=== PATIENT | male | born 1965 | race Caucasian/White ===

== ENCOUNTER 2018-12-10 20:29 | Inpatient (IN) | payer BC ==
[~2018-12-10] VITALS: Ht 180.3 cm; Wt 106.4 kg
[2018-12-10] MEDS ORDERED: SIMV40TA2 PO (20:33)
[2018-12-10] MEDS ORDERED: AMLO10TA5 PO (20:33)
[2018-12-10] MEDS ORDERED: INDO50CA11 (20:33)
[2018-12-10] MEDS ORDERED: METO1TAB7 PO (20:33)
[2018-12-10] MEDS ORDERED: LOSA100T5 PO (20:33)
[2018-12-10] MEDS ORDERED: ONDANSETRON 4MG/2ML VIAL (J2405) IV ONE (20:45)
[2018-12-10] MEDS ORDERED: MORPHINE 4 MG/ML 1ML VIAL/SYRINGE (J2270) IV ONE (20:45)
[2018-12-10] MEDS ORDERED: NS 1,000 ML IV SCH (20:45)
[2018-12-10 21:11] LABS: BASO # 0.1 10^3/uL (0.0-0.2); BASO % 0.5 % (0.0-1.0); EOS # 0.4 10^3/uL (0.0-0.50); EOS % 4.1 % (0.0-3.0); HEMATOCRIT 45.2 % (42.0-52.0); HEMOGLOBIN 15.4 g/dl (13.5-17.5); LYMPH # 1.4 10^3/uL (1.5-4.5); LYMPH % 15.3 % (24.0-44.0); MEAN CORPUSCULAR HGB CONC 34.1 g/dl (32.0-36.5); MEAN CORPUSCULAR VOLUME 85.1 fl (80.0-96.0); MONO % 10.5 % (0.0-5.0); NEUTROPHILS # 6.3 10^3/uL (1.8-7.7); NEUTROPHILS % 69.3 % (36.0-66.0); PLATELET COUNT, AUTOMATED 244 10^3/uL (150-450); RED BLOOD COUNT 5.31 10^6/uL (4.30-6.10); WHITE BLOOD COUNT 9.1 10^3/uL (4.0-10.0)
[2018-12-10 21:33] LABS: ALBUMIN 4.1 GM/DL (3.2-5.2); BILIRUBIN,DIRECT 0.2 MG/DL (0.0-0.2); BILIRUBIN,TOTAL 0.7 MG/DL (0.2-1.0); CALCIUM LEVEL 9.8 MG/DL (8.5-10.1); CREATININE FOR GFR 1.76 MG/DL (0.70-1.30); GLOMERULAR FILTRATION RATE 43.5 (>56); POTASSIUM SERUM 3.5 MEQ/L (3.5-5.1); TOTAL PROTEIN 7.9 GM/DL (6.4-8.2)
[2018-12-10] MEDS ORDERED: KETOROLAC 30 MG/ML VIAL (J1885) IV ONE (21:45)
--- NOTE | 2018-12-10 23:13 | REPVR ---
EXAM: CT Abdomen and Pelvis Without Contrast EXAM DATE/TIME: 12/10/2018 10:00 PM CLINICAL HISTORY: 53 years old, male; Abdominal pain; Generalized; Additional info: Llq pain, hematuria TECHNIQUE: Imaging protocol: Axial computed tomography images of the abdomen and pelvis without contrast. Coronal and sagittal reformatted images were created and reviewed. Radiation optimization: All CT scans at this facility use at least one of these dose optimization techniques: automated exposure control; mA and/or kV adjustment per patient size (includes targeted exams where dose is matched to clinical indication); or iterative reconstruction. COMPARISON: No relevant prior studies available. FINDINGS: ABDOMEN: Liver: There is a diffuse decrease in hepatic parenchymal density, consistent with fatty infiltration. Gallbladder and bile ducts: There are gallstones present. No CT evidence of cholecystitis demonstrated. Pancreas: Normal. No ductal dilation. Spleen: Normal. No splenomegaly. Adrenals: Normal. No mass. Kidneys and ureters: Multiple bilateral non obstructing renal calculi are demonstrated measuring up to 6 mm in the right kidney. There is a 5 mm. obstructive ureteral calculus located in the distal right ureter immediately proximal to the UV junction resulting in moderate proximal hydroureteronephrosis. There is periureteral and perinephric stranding. 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 Stomach and bowel: Normal. No obstruction. No mucosal thickening. Appendix: No evidence of appendicitis. PELVIS: Bladder: Unremarkable as visualized. Reproductive: The prostate gland demonstrates mild hyperplasia. ABDOMEN and PELVIS: Intraperitoneal space: Normal. No free air. No significant fluid collection. Bones/joints: No acute fracture. No dislocation. Soft tissues: Small umbilical hernia. Vasculature: The aorta demonstrates mild atherosclerotic calcification. Lymph nodes: Normal. No enlarged lymph nodes. IMPRESSION: 1. There is a diffuse decrease in hepatic parenchymal density, consistent with fatty infiltration. 2. There are gallstones present. No CT evidence of cholecystitis demonstrated. 3. Multiple bilateral non obstructing renal calculi are demonstrated measuring up to 6 mm in the right kidney. 4. There is a 5 mm. obstructive ureteral calculus located in the distal right ureter immediately proximal to the UV junction resulting in moderate proximal hydroureteronephrosis. There is periureteral and perinephric stranding. 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 5. Mild prostatic hyperplasia. Electronically signed by: Geovanny López On 12/10/2018 23:12:52 PM
[2018-12-10] MEDS ORDERED: INDO50CA11 PO (23:58)
[2018-12-11] VITALS (7 sets, daily range): BP systolic 108–139; BP diastolic 64–86
[2018-12-11] MEDS ORDERED: MORPHINE 4 MG/ML 1ML VIAL/SYRINGE (J2270) IV PRN (01:30)
[2018-12-11] MEDS ORDERED: ONDANSETRON 4MG/2ML VIAL (J2405) IV PRN (01:30)
[2018-12-11] MEDS: CIPROFLOXACIN 400 MG in APPROPRIATE DILUENT 1 EA IV SCH ×2 (01:45→12:38)
[2018-12-11] MEDS: NS 1,000 ML IV SCH ×2 (07:27→12:37)
[2018-12-11] MEDS ORDERED: METOPROLOL SUCC (TopROL XL) 50MG **XL** TAB PO SCH (09:00)
[2018-12-11] MEDS ORDERED: TAMSULOSIN 0.4 MG CAP PO SCH (09:00)
[2018-12-11] MEDS ORDERED: amLODIPine 10 MG TAB PO SCH (09:00)
[2018-12-11] MEDS ORDERED: SIMVASTATIN 40 MG TAB PO SCH (09:00)
--- NOTE | 2018-12-11 10:23 | HPE ---
DATE OF ADMISSION: 12/11/2018 PRIMARY CARE PROVIDER: Dr. Vickers CHIEF COMPLAINT: Worsening left flank pain. HISTORY OF PRESENT ILLNESS: The patient is a 53-year-old white male with several chronic medical conditions, including kidney stones. The patient came to the emergency room complaining of worsening left flank pain. History was provided by himself. He has a history of bilateral kidney stones in the past and he had stone removal. The last week he has had mild left flank pain, which is getting worse. Last night the pain was 10/10 in severity and he decided to come to the emergency room for further evaluation. In the emergency room, he had a CT of the abdomen and pelvis done, which demonstrated that he had left ureteral stone with hydronephrosis. Urology was contacted and medicine service was called for admission. REVIEW OF SYSTEMS: Denies fever. No chills. No headache or blurred vision. No shortness of breath. No chest pain. Positive vomiting. Positive left flank pain but not diarrhea. No tingling, numbness or weakness in the arms or lower extremities. All other systems reviewed but negative. PAST MEDICAL HISTORY: 1. Hypertension. 2. Dyslipidemia. 3. Kidney stones. 4. Gout. PAST SURGICAL HISTORY: 1. Bilateral kidney stones removed. SOCIAL HISTORY: Denies tobacco abuse, denies alcohol abuse. Denies illicit drug abuse. He is . He is a [employer]. FAMILY HISTORY: No family history of kidney stones. MEDICATIONS: Reviewed. PHYSICAL EXAMINATION: VITAL SIGNS: Temperature 98.1, heart rate 58, respiratory rate 18, blood pressure 140/80, oxygen saturation 97% on room air. GENERAL: He is alert and oriented times three. He is not in acute distress. HEENT: Atraumatic. Pupils are equal, round and reactive to light. Extraocular muscles intact. No jaundice. Ears, nose and throat normal. Mouth: Mucosa not dry. NECK: No jugular venous distention (JVD) or bruits. LUNGS: Clear. No wheezing. No crackles. HEART: S1, S2 regular. No murmur. ABDOMEN: Soft. Bowel sounds positive. Nontender. LOWER EXTREMITIES: No edema in bilateral lower extremities. NEUROLOGIC: Nonfocal. SKIN: No rash. PSYCHOLOGIC: No acute psychosis. DIAGNOSTICS AND LABORATORIES: CBC and differential showed a WBC of 9.1, hemoglobin and hematocrit 15/45, platelets 244. Sodium 142, potassium 3.,5 chloride 107, bicarbonate 26, BUN 23, creatinine 1.7, glucose 98. CT of the abdomen and pelvis reviewed. IMPRESSION: 1. Left ureteral stone with hydronephrosis. 2. Hypertension. 3. Dyslipidemia. 4. History of gout. PLAN: The patient will be admitted to the medical/surgical floor. I will keep him nothing by mouth. We will treat him with IV hydration, pain control, Flomax. Urologist will come and consult on him and decide if he will go to the operating room in the morning.
[2018-12-11] MEDS ORDERED: SENOKOT S TAB PO PRN (11:00)
[2018-12-11 11:31] LABS: HEMATOCRIT 43.1 % (42.0-52.0); HEMOGLOBIN 14.6 g/dl (13.5-17.5); MEAN CORPUSCULAR HEMOGLOBIN 29.4 pg (27.0-33.0); MEAN CORPUSCULAR HGB CONC 33.9 g/dl (32.0-36.5); MEAN CORPUSCULAR VOLUME 86.7 fl (80.0-96.0); PLATELET COUNT, AUTOMATED 208 10^3/uL (150-450); RED BLOOD COUNT 4.97 10^6/uL (4.30-6.10); WHITE BLOOD COUNT 6.6 10^3/uL (4.0-10.0)
[2018-12-11 11:48] LABS: CALCIUM LEVEL 9.4 MG/DL (8.5-10.1); CREATININE FOR GFR 1.7 MG/DL (0.70-1.30); GLOMERULAR FILTRATION RATE 45.3 (>56); POTASSIUM SERUM 3.8 MEQ/L (3.5-5.1)
[2018-12-11] MEDS ORDERED: CONRAY-60 60% 50ML VIAL (Q9961) As Ordered ONE (18:02)
[2018-12-11] MEDS ORDERED: fentaNYL 100 MCG/2 ML INJECTION (J3010) As Ordered ONE (18:30)
[2018-12-11] MEDS ORDERED: PROPOFOL 200 MG/20 ML VIAL As Ordered ONE (18:30)
[2018-12-11] MEDS ORDERED: METOCLOPRAMIDE INJ 10MG/2ML VIAL (J2765) As Ordered ONE (18:30)
[2018-12-11] MEDS ORDERED: ROCURONIUM BROMIDE 50 MG/5 ML VIAL As Ordered ONE (18:30)
[2018-12-11] MEDS ORDERED: ONDANSETRON 4MG/2ML VIAL (J2405) As Ordered ONE (18:30)
[2018-12-11] MEDS ORDERED: SUGAMMADEX SODIUM 500 MG/5 ML VIAL (BRIDION) As Ordered ONE (18:30)
[2018-12-11] MEDS ORDERED: dexameTHASONE 4 MG/ML 1ML VIAL (J1100) As Ordered ONE (18:30)
[2018-12-11] MEDS ORDERED: MIDAZOLAM INJ 2 MG/2 ML VIAL (J2250) As Ordered ONE (18:30)
[2018-12-11] MEDS ORDERED: LIDOCAINE 2% INJ 100 MG/5 ML SDV (FOR ANES.) As Ordered ONE (18:30)
[2018-12-11] MEDS ORDERED: ePHEDrine SULFATE 25 MG/5 ML(5MG/ML) SYRINGE As Ordered ONE (18:43)
[2018-12-11] MEDS ORDERED: ACETAMINOPHEN 1000MG 100ML IV BTL (OFIRMEV) (J0131 PER 10MG) As Ordered ONE (18:45)
[2018-12-11] MEDS ORDERED: fentaNYL 100 MCG/2 ML INJECTION (J3010) IV PRN (19:00)
[2018-12-11] MEDS ORDERED: LR 1,000 ML IV SCH (19:00)
[2018-12-11] MEDS ORDERED: PROMETHAZINE INJ 25 MG/ML VIAL (J2550) IV PRN (19:00)
[2018-12-11] MEDS ORDERED: PHENAZOPYRIDINE 100 MG TAB PO ONE (19:45)
--- NOTE | 2018-12-12 11:05 | CR ---
DATE OF CONSULTATION: 12/11/2018 REFERRING PHYSICIAN: Dr. Bo REASON FOR CONSULTATION: Distal left ureteral calculus. Jethro Lewis is a 53-year-old male with a history of stone disease who presented to the [facility] Emergency Room late last evening with a less than 24 hour history of left sided flank pain which was gradually worsening. He had some nausea and vomiting at home. He denied any dysuria. He denied any gross hematuria. He denied any fever. CT scan was performed which revealed a distal left ureteral calculus measuring roughly 7 mm. He was also found to have an elevated creatinine to 1.7, thus prompting urological consultation. The patient does give a history of bilateral stone disease requiring percutaneous management in the past. At the present, he is not having any significant voiding symptoms. He passed a few little granules of stone-like material earlier this morning, but is still requiring pain medicine. PAST MEDICAL HISTORY: Significant for hypertension, dyslipidemia, gout. PHYSICAL EXAMINATION: He is a fairly comfortable appearing male lying in bed. His abdomen is soft. He is rather tender in the left lower quadrant. There are no palpable masses. There is no evidence of any rebound or guarding. He has some mild left costovertebral angle (CVA) tenderness. The remainder of his examination is unremarkable. LABORATORY STUDIES: Reveal a hematocrit of 43.1 with hemoglobin of 14.6 and a white blood cell count of 6.6. BUN and creatinine are 22 over 1.7, virtually unchanged from admission. CT scan of the abdomen revealed an obstructing distal left ureteral calculus with moderate hydronephrosis, periureteral and perinephric stranding and a perinephric urinoma. ASSESSMENT: Distal left ureteral calculus. PLAN: To take the patient to the operating room for left ureteroscopy with laser lithotripsy and double J-stent placement. Please note I have had a discussion with the patient in the presence of his family about the options available, including but not limited to, ureteroscopy versus conservative management, with antibiotics, pain medicine, and Flomax, and he can go home to try to pass the stone. I have discussed with him the risks of both options, specifically the surgical risks, including but not limited to, bleeding, infection, pain, inability to get a wire proximal to the stone, inability to get to the stone, proximal migration of the stone. I have explained to him the need for stent placement and subsequent stent removal as an outpatient. The patient understands all of this and agrees to go forward with the procedure. Of note, there was a misinterpretation of the CT scan which was originally dictated as the stone being on the right, I have reviewed the films and the patient has a distal left stone, but also has stones in the right kidney which may very well need to be addressed at a later date.
--- NOTE | 2018-12-12 12:34 | RO ---
DATE OF PROCEDURE: 12/11/2018 PREPROCEDURE DIAGNOSIS: Obstructing distal left ureteral calculus with refractory pain. POSTPROCEDURE DIAGNOSIS: Obstructing distal left ureteral calculus with refractory pain. OPERATIVE PROCEDURE: Cystoscopy, left ureteroscopy with laser lithotripsy, double J stent placement. SURGEON: Bj Cr MD [employer]: ANESTHESIA: General via endotracheal tube. DESCRIPTION OF PROCEDURE: The patient was brought to the operating room and placed on the operating table in the supine position. After induction of adequate anesthesia, the patient was placed in the dorsal lithotomy position. His lower abdomen and genitalia were prepped and draped in the usual sterile manner. All appropriate pressure points were padded. Cystopanendoscopy was performed using the rigid #21-Turkish scope cystoscope sheath with 30-70 degree lenses. The urethra was without stricture. The prostate roughly 3 cm in length and non-occlusive. The bladder itself was smooth walled without any evidence cellular or diverticular formation. No stones, clots, or tumors were identified. Ureteral orifices were normal in location and configuration. There was no efflux of urine from the left ureteral orifice. No test of the left orifice where resistance was met almost immediately presumably from the obstructing stone. Meanwhile it was able to be manipulated proximal to the stone. Balloon dilatation was then carried out over the wire of the intrarenal ureter. The rigid ureteroscope was then passed along side the wire and the obstructing stone was almost immediately identified. The laser fiber was deployed and the stone fragmented. The settings are available from the laser lock. Once the stone was clearly fragmented into pieces small enough to pass, the ureteroscope was removed under direct vision and a #6-Turkish [place] ureteral stent was passed over the wire into the renal pelvis without any difficulty. The wire was then removed with the stent remaining in good position. The bladder was decompressed through the cystoscope sheath and the procedure terminated. Patient tolerated the procedure well and was transported in stable condition to recovery.
== END 2018-12-11 22:05 | disposition home or self-care (01) | DRG 465 ==
LOC: M ED 20:29 → M ED INP 12-11 01:19 → M PED 12-11 03:00
PROVIDERS: ADMIT Hospitalist; ATTEND General Practice
PROC: 0TF78ZZ Fragmentation in Left Ureter, Via Natural or Artificial Opening Endoscopic (ICD-10-PCS; principal; 2018-12-11 13:00)
DX: N13.2 Hydronephrosis with renal and ureteral calculous obstruction (principal); I10 Essential (primary) hypertension; E78.5 Hyperlipidemia, unspecified; M10.9 Gout, unspecified